=== PATIENT | male | born 1955 | race Caucasian/White ===

== ENCOUNTER 2019-07-25 06:20 | Day surgery (SDC) | payer MEDICARE ==
[~2019-07-25] VITALS: Ht 167.6 cm; Wt 81.7 kg
[~2019-07-25 06:20] MED LIST: ATOR20 PO; FINA5 PO; TAMS.4ER; TERA5 PO
--- NOTE | 2019-07-25 08:06 | NUR ---
07/25/19 0806 Matteo Reilly PT RECEIVED BLOCK AFTER ENTERING OR, APPEARS TO TOLERATED WELL. UPON INDUCTION PT INTO SVT. CASE CX PER DR ORDAZ, ANESTHESIOLOGIST. DR. TOMAS NOTIFIED. PT TO STEP DOWN. REPORT TO STEP DOWN RN WITH ORDERS FROM DR. ORDAZ FOR 12 LEAD EKG AND CARDIOLOGY CONSULT.
--- NOTE | 2019-07-25 08:22 | NUR ---
07/25/19 0822 Jennie Cavazos PT ARRIVED TO SDU. VITALS AND 12 LEAD EKG OBTAINED. PT DENIES HISTORY OF RAPID / RACING HEART. EKG GIVEN TO DR. ORDAZ. DR. DE LA CRUZ IS EQUAL OPPORTUNITY REPRESENTATIVE CARD SETTER, DR. ORDAZ WILL CALL AND DISCUSS PT WITH CARDIOLOGY.
== END 2019-07-25 12:00 | disposition home or self-care (01) ==
LOC: ORSCSDS 06:20
PROVIDERS: Orthopaedic Surgery
PROC: 0LQ14ZZ Repair Right Shoulder Tendon, Percutaneous Endoscopic Approach (ICD-10-PCS; principal; 2019-07-25 07:30)
DX: S46.101A Unspecified injury of muscle, fascia and tendon of long head of biceps, right arm, initial encounter (principal); S46.001A Unspecified injury of muscle(s) and tendon(s) of the rotator cuff of right shoulder, initial encounter; M19.011 Primary osteoarthritis, right shoulder; M75.41 Impingement syndrome of right shoulder; Z53.9 Procedure and treatment not carried out, unspecified reason; I48.91 Unspecified atrial fibrillation; E78.5 Hyperlipidemia, unspecified; Z87.891 Personal history of nicotine dependence; Z79.899 Other long term (current) drug therapy
CPT/HCPCS: J0171; J0690; J2250; J2370; J2704; J3010; J7120

== ENCOUNTER → 2019-11-30 | Outpatient (CLI) | payer MEDICARE | END | disposition home or self-care (01) | LOC: LAB 15:54 → LAB SHORT 15:54 | DX: N39.0 Urinary tract infection, site not specified (principal) | CPT/HCPCS: 87077; 87086; 87186 ==

== ENCOUNTER → 2020-04-23 | Outpatient (CLI) | payer MEDICARE | END | disposition home or self-care (01) | LOC: PLD 14:33 → LAB SHORT 14:33 | DX: D04.39 Carcinoma in situ of skin of other parts of face (principal); L57.0 Actinic keratosis | CPT/HCPCS: 88305 ==

== ENCOUNTER → 2021-05-12 | Outpatient (CLI) | payer MEDICARE | END | disposition home or self-care (01) | LOC: LAB SHORT 15:00 → PLD 15:00 | DX: C44.319 Basal cell carcinoma of skin of other parts of face (principal) | CPT/HCPCS: 88305 ==

== ENCOUNTER → 2021-06-05 | Outpatient (CLI) | payer MEDICARE | END | disposition home or self-care (01) | LOC: LAB SHORT 14:43 → PLD 14:43 | DX: C44.310 Basal cell carcinoma of skin of unspecified parts of face (principal) | CPT/HCPCS: 88305 ==

== ENCOUNTER → 2023-06-15 | Outpatient (CLI) | payer MEDICARE | END | disposition home or self-care (01) | LOC: LAB SHORT 14:48 → LAB 14:48 | DX: D09.8 Carcinoma in situ of other specified sites (principal) | CPT/HCPCS: 88305 ==